=== PATIENT | male | born 1930 | race Caucasian/White ===

== ENCOUNTER 2019-02-08 06:43 | Inpatient (IN) | payer MEDICARE ==
[~2019-02-08] VITALS: Ht 172.7 cm; Wt 83.9 kg
[~2019-02-08 06:43] MED LIST: ALBU2.5V8 INH; ASPI325T8 PO; CARV3.1210 PO; FURO-69 PO; IPRA3AMP29 NEB; MULT1TAB52 PO; POTA20TA82 PO; SIMV20TA3 PO; TAMS0.4C2 PO
[2019-02-08 07:30] LABS: BASE EXCESS ABG -2 mmol/L (-3-3); HCO3 ABG 23 mmol/L (21-28); PCO2 ABG 39 mmHg (35-46); PO2 ABG 80 mmHg (65-108); SAT O2 ABG 94 % (92-99)
[2019-02-08] MEDS ORDERED: IPRATRPIUM/ALBUTEROL 0.5/2.5MG 3 ML NEBU. NEB ONE (07:30)
[2019-02-08] MEDS ORDERED: methylPREDNISolone SOD SUCC PF 125 MG/2 ML VIAL. IV ONE (07:30)
[2019-02-08 07:33] LABS: FIO2 ABG 28
[2019-02-08 07:35] LABS: BASO % 1 % (0-3); EOS # 0.1 x10^3/uL (0.0-0.7); EOS % 2 % (0-3); HEMATOCRIT 39.1 % (39.0-53.0); HEMOGLOBIN 12.9 g/dL (13.0-17.5); LYMPH # 0.8 x10^3/uL (1.0-4.8); LYMPH % 10 % (24-48); MEAN CORPUSCULAR HEMOGLOBIN 29 pg (25-35); MEAN CORPUSCULAR HGB CONC 33 g/dL (31-37); MEAN CORPUSCULAR VOLUME 88 fL (79-100); MONO # 0.9 x10^3/uL (0.0-1.1); MONO % 12 % (0-9); NEUT % 76 % (31-73); PLATELET COUNT 98 x10^3/uL (140-400); RED BLOOD COUNT 4.46 x10^6/uL (4.30-5.70); RED CELL DISTRIBUTION WIDTH 15.4 % (11.5-14.5); WHITE BLOOD COUNT 7.9 x10^3/uL (4.0-11.0)
--- NOTE | 2019-02-08 07:39 | RAD ---
PORTABLE CHEST 1V INDICATION: Dyspnea. COMPARISON STUDY: None. FINDINGS: Lungs: Normal lung volume. Bilateral perihilar and basilar regions opacities. Indistinct pulmonary vasculature. Pleura: Small to moderate right and trace left effusions. Heart and Mediastinum: Cardiomegaly. Atherosclerotic thoracic aorta. Cardiac valve prosthesis. IMPRESSION: Bilateral perihilar and basilar heterogeneous opacities, likely pulmonary edema. Small to moderate right and trace left pleural effusions. Electronically signed by: Nasir Driscoll MD (02/08/2019 7:36 AM) [facility]
[2019-02-08 07:47] LABS: CALCIUM 9.6 mg/dL (8.5-10.1); CREATININE 1.9 mg/dL (0.7-1.3); GFR 33.8; POTASSIUM 4.2 mmol/L (3.5-5.1)
[2019-02-08 07:54] LABS: ALBUMIN 3.6 g/dL (3.4-5.0); ALBUMIN/GLOBULIN RATIO 1.1 (1.0-1.7); TOTAL PROTEIN 6.8 g/dL (6.4-8.2)
--- NOTE | 2019-02-08 09:40 | PHYS DOC ---
Past Medical History Past Medical History: COPD Additional Past Medical Histor: SKIN CA, POOR HISTORIAN Past Surgical History: No Surgical History Additional Past Surgical Histo: POOR HISTORIAN Additional Information: QUIT 2002 Alcohol Use: None Drug Use: None Adult General Chief Complaint Chief Complaint: RIB PAIN [facility] HPI Patient is a 88 year old male who presents via EMS with complaining shortness of breath. Patient had a fall with left-sided chest wall injury about 10 days ago and complaining of increasing chest wall pain and shortness of breath because of the pain. Patient has history of COPD without having oxygen and also has history of CHF and currently taking Lasix. Patient denies chest pain, fever and chills, nausea and vomiting, focal neuro deficit. Review of Systems Review of Systems Constitutional: Denies fever or chills [] Eyes: Denies change in visual acuity, redness, or eye pain [] HENT: Denies nasal congestion or sore throat [] Respiratory: Reports dry cough and shortness of breath Cardiovascular: No additional information not addressed in HPI [] GI: Denies abdominal pain, nausea, vomiting, bloody stools or diarrhea [] : Denies dysuria or hematuria [] Musculoskeletal: Denies back pain or joint pain [] Integument: Denies rash or skin lesions [] Neurologic: Denies headache, focal weakness or sensory changes [] Endocrine: Denies polyuria or polydipsia [] All other systems were reviewed and found to be within normal limits, except as documented in this note. Current Medications Current Medications Current Medications Medications (Trade) Dose Ordered Sig/Ajx Start Time Stop Time Status Last Admin Dose Admin Albuterol/ Ipratropium (Duoneb) 3 ml 1X ONCE 02/08/19 07:30 02/08/19 07:31 DC 02/08/19 07:08 3 ML Methylprednisolone Sodium Succinate (SOLU-Medrol 125MG VIAL) 125 mg 1X ONCE 02/08/19 07:30 02/08/19 07:31 DC 02/08/19 07:37 125 MG Allergies Allergies Allergies Coded Allergies Type Severity Reaction Last Updated Verified No Known Drug Allergies 02/17/17 No Physical Exam Physical Exam Constitutional: Well developed, mild distress, non-toxic appearance. [] HENT: Normocephalic, atraumatic. Eyes: PERRLA, EOMI, conjunctiva normal, no discharge. [] Neck: Normal range of motion, no tenderness, supple, no stridor. [] Cardiovascular:Heart rate regular rhythm, no murmur [] Lungs & Thorax: Mild respiratory distress with bilateral rales Abdomen: Bowel sounds normal, soft, no tenderness, no masses, no pulsatile masses. [] Skin: Warm, dry, no erythema, no rash. [] Back: No tenderness, no CVA tenderness. [] Extremities: No tenderness, no cyanosis, no clubbing, ROM intact. Neurologic: Alert and oriented X 3, no focal deficits noted. [] Psychologic: Affect normal, judgement normal, mood normal. [] Current Patient Data Vital Signs Vital Signs Date Time Temp Pulse Resp B/P (MAP) Pulse Ox O2 Delivery O2 Flow Rate FiO2 02/08/19 08:48 72 18 97/50 (66) 98 Nasal Cannula 2.0 02/08/19 06:43 97.7 97.7 Lab Values Laboratory Tests Test 02/08/19 07:15 02/08/19 07:28 White Blood Count 7.9 x10^3/uL (4.0-11.0) Red Blood Count 4.46 x10^6/uL (4.30-5.70) Hemoglobin 12.9 g/dL (13.0-17.5) L Hematocrit 39.1 % (39.0-53.0) Mean Corpuscular Volume 88 fL (79-100) Mean Corpuscular Hemoglobin 29 pg (25-35) Mean Corpuscular Hemoglobin Concent 33 g/dL (31-37) Red Cell Distribution Width 15.4 % (11.5-14.5) H Platelet Count 98 x10^3/uL (140-400) L Neutrophils (%) (Auto) 76 % (31-73) H Lymphocytes (%) (Auto) 10 % (24-48) L Monocytes (%) (Auto) 12 % (0-9) H Eosinophils (%) (Auto) 2 % (0-3) Basophils (%) (Auto) 1 % (0-3) Neutrophils # (Auto) 6.0 x10^3/uL (1.8-7.7) Lymphocytes # (Auto) 0.8 x10^3/uL (1.0-4.8) L Monocytes # (Auto) 0.9 x10^3/uL (0.0-1.1) Eosinophils # (Auto) 0.1 x10^3/uL (0.0-0.7) Basophils # (Auto) 0.0 x10^3/uL (0.0-0.2) O2 Saturation 94 % (92-99) Arterial Blood pH 7.39 (7.35-7.45) Arterial Blood pCO2 at Patient Temp 39 mmHg (35-46) Arterial Blood pO2 at Patient Temp 80 mmHg (65-108) Arterial Blood HCO3 23 mmol/L (21-28) Arterial Blood Base Excess -2 mmol/L (-3-3) FiO2 28 Sodium Level 142 mmol/L (136-145) Potassium Level 4.2 mmol/L (3.5-5.1) Chloride Level 101 mmol/L (98-107) Carbon Dioxide Level 30 mmol/L (21-32) Anion Gap 11 (6-14) Blood Urea Nitrogen 66 mg/dL (8-26) H Creatinine 1.9 mg/dL (0.7-1.3) H Estimated GFR (Cockcroft-Gault) 33.8 BUN/Creatinine Ratio 35 (6-20) H Glucose Level 96 mg/dL (70-99) Calcium Level 9.6 mg/dL (8.5-10.1) Total Bilirubin 2.0 mg/dL (0.2-1.0) H Aspartate Amino Transferase (AST) 25 U/L (15-37) Alanine Aminotransferase (ALT) 25 U/L (16-63) Alkaline Phosphatase 76 U/L (46-116) Creatine Kinase 154 U/L (39-308) Troponin I Quantitative < 0.017 ng/mL (0.000-0.055) XU-Wjw-T-Type Natriuretic Peptide 3455 pg/mL (0-449) H Total Protein 6.8 g/dL (6.4-8.2) Albumin 3.6 g/dL (3.4-5.0) Albumin/Globulin Ratio 1.1 (1.0-1.7) Lactic Acid Level 1.7 mmol/L (0.4-2.0) Laboratory Tests 02/08/19 07:15 Laboratory Tests 02/08/19 07:15 EKG EKG EKG interpreted by me. EKG at 0651 showed sinus rhythm with PACs, leftward axis, poor R-wave progress in anteroseptal leads, no acute ST and T-wave elevation. Radiology/Procedures Radiology/Procedures [][facility] [address] [place] [address] IMAGING REPORT Signed PATIENT: AMARIS PRATT ACCOUNT: [id number] : 1930 LOCATION: ER AGE: 88 SEX: M EXAM STATUS: REG ER ORD. PHYSICIAN: RICHARD LEI MD REASON: shortness of breath PROCEDURE: PORTABLE CHEST 1V PORTABLE CHEST 1V INDICATION: Dyspnea. COMPARISON STUDY: None. FINDINGS: Lungs: Normal lung volume. Bilateral perihilar and basilar regions opacities. Indistinct pulmonary vasculature. Pleura: Small to moderate right and trace left effusions. Heart and Mediastinum: Cardiomegaly. Atherosclerotic thoracic aorta. Cardiac valve prosthesis. IMPRESSION: Bilateral perihilar and basilar heterogeneous opacities, likely pulmonary edema. Small to moderate right and trace left pleural effusions. Electronically signed by: Abad Driscoll MD (02/08/2019 7:36 AM) [facility] DICTATED and SIGNED BY: ABDA DRISCOLL MD DATE: 02/08/19735 Course & Med Decision Making Course & Med Decision Making Pertinent Labs and Imaging studies reviewed. (See chart for details) Evaluation of patient in ER showed 88-year-old male patient brought in by EMS because of shortness of breath and history of chest wall injury. Patient had elevation of BNP and hypoxia and treated with and Solu-Medrol. Patient did not have Lasix in ER because of elevation of renal function test and also blood pressure of 97 over 60 at time of admission.Patient requiring admission for further evaluation and treatment. Discussed with Dr. Issac Tolentino who is in agreement with admission. Discussed findings and plan with patient and family, who acknowledge understanding and agreement. Dragon Disclaimer Dragon Disclaimer This electronic medical record was generated, in whole or in part, using a voice recognition dictation system. Departure Departure Impression: Primary Impression: CHF exacerbation Additional Impressions: Dyspnea Hypoxia Renal insufficiency Elevated bilirubin Disposition: ADMITTED INPATIENT (at 0908) Admitting Physician: Issac Tolentino (accepted admission at 09) Condition: IMPROVED Referrals: ABAD DIA MD (PCP) Problem Qualifiers Primary Impression: CHF exacerbation Heart failure type: unspecified Qualified Codes: I50.9 - Heart failure, unspecified Additional Impressions: Dyspnea Dyspnea type: unspecified Qualified Codes: R06.00 - Dyspnea, unspecified RICHARD LEI MD Feb 08, 2019 09:40
--- NOTE | 2019-02-08 10:12 | EKG ---
[facility] [address] [place] [address] Test Date: 2019-02-08 Test Time: 06:51:25 Pat Name: AMARIS PRATT Department: Room: 2 1 Gender: M [employer] Fe[employer]: : 1930 Requested By: RICHARD LEI Order Number: [id number] Reading MD: Varinder Oliva MD Measurements Intervals [place] Rate: 90 P: OK: QRS: -15 QRSD: 98 T: 49 QT: 374 QTc: 462 Interpretive Statements Ectopic atrial rhythm PAC's PVC"s Electronically Signed On 02-12-2019 14:18:15 CDT by Varinder Oliva MD
[2019-02-08 10:31] VITALS: BP 151/55
[2019-02-08 15:00] VITALS: BP 121/56
[2019-02-08] MEDS: CARVEDILOL 3.125 MG TABLET. PO SCH (17:44)
[2019-02-08] MEDS ORDERED: NAPROXEN 250 MG TABLET PO PRN (18:00)
[2019-02-08 19:37] VITALS: BP 114/57
[2019-02-08] MEDS: SIMVASTATIN 20 MG TABLET PO SCH (21:00)
[2019-02-08] MEDS: IPRATRPIUM/ALBUTEROL 0.5/2.5MG 3 ML NEBU. NEB SCH (21:26)
[2019-02-08 23:30] VITALS: BP 105/53
[2019-02-08 23:58] LABS: BILIRUBIN,URINE NEGATIVE (NEG); CLARITY,URINE CLEAR; COLOR,URINE YELLOW; PROTEIN,URINE NEGATIVE (NEG-TRACE); UROBILINOGEN,URINE 0.2 mg/dL (0.2 mg/dL)
[2019-02-08 23:59] LABS: BACTERIA,URINE 0 /HPF (0-FEW); HYALINE CASTS, URINE OCCASIONAL /HPF; NITRITE,URINE NEGATIVE (NEG); RBC,URINE 0 /HPF (0-2); SQUAMOUS EPITHELIAL CELL,UR OCC /LPF; WBC,URINE OCC /HPF (0-4)
--- NOTE | 2019-02-09 02:36 | NUR ---
Pt given shower this am due to very dry skin and pt states he had something in his pocket that could not get wet. CLINICAL LIAISON noted money and cards in his pocket. Called security since pt had more than 400$ in his pocket. Pt verbalized understanding.
[2019-02-09 03:00] VITALS: BP 109/58
[2019-02-09] MEDS: IPRATRPIUM/ALBUTEROL 0.5/2.5MG 3 ML NEBU. NEB SCH ×4 (07:13→21:13)
[2019-02-09 07:34] VITALS: BP 116/61
[2019-02-09] MEDS: TAMSULOSIN 0.4 MG CAP.ER.24H. PO SCH (08:12)
[2019-02-09] MEDS: ASPIRIN 325 MG TABLET PO SCH (08:12)
[2019-02-09] MEDS: POTASSIUM CHLORIDE 20 MEQ TABLET.ER. PO SCH (08:13)
[2019-02-09] MEDS: CARVEDILOL 3.125 MG TABLET. PO SCH ×2 (08:13→17:07)
[2019-02-09] MEDS: MULTIVITAMIN with MINERAL TABLET. PO SCH (08:13)
[2019-02-09] MEDS ORDERED: FUROSEMIDE 20 MG TABLET PO SCH (09:00)
[2019-02-09 10:48] VITALS: BP 133/63
[2019-02-09] MEDS ORDERED: FLU VAX QS 2019-20 (36MOS+)/PF 0.5 ML SYRINGE. VAX IM ONE (11:00)
--- NOTE | 2019-02-09 11:45 | NUR ---
wound care patient seen per wound care consult. see wound assessment. patient has a lesion on the left forehead the area was cleaned and redressed with recommendations of Xeroform gauze with a Telfa dressing change every other day, patient also has a wound on the scalp the area was cleaned and redressed with recommendations of Xeroform gauze with a Telfa, change every other day. patient has a stage 2 pressure ulcer on the buttock/ coccyx area, the area was cleaned and redressed with recommendations of Calazime cream, prn. patient currently has a P500 bed. wound care will continue to f/u for changes.
[2019-02-09 14:54] VITALS: BP 113/38
[2019-02-09 19:18] VITALS: BP 97/43
--- NOTE | 2019-02-09 20:25 | HP ---
ADMIT DATE: 02/08/2019 CHIEF COMPLAINT AND HISTORY OF PRESENT ILLNESS: This 88-year-old white male is well known to me from followup in the office. The patient presented by ambulance to the ER on the day of admission complaining of shortness of breath. He has been having increasing shortness of breath, which he relates back to a fall 10 days ago, getting progressively worse. He has a history of COPD and also a history of heart failure and is on Lasix. He was felt to have an exacerbation of CHF in the ER and admitted for the same. PAST MEDICAL HISTORY: Remarkable for COPD and congestive heart failure. He has some mild memory loss. He has a prior history of CVA, hypertension, arthritis, skin cancers. MEDICATIONS: Brought with the patient, listed on the computer and have been addressed. ALLERGIES: He has no known drug allergies. SOCIAL HISTORY: He is a , nonsmoker, nondrinker, does not abuse drugs. Lives at home alone. FAMILY HISTORY: Noncontributory. REVIEW OF SYSTEMS: Remarkable for the shortness of breath. He does have some left-sided chest pain with a deeper breath. PHYSICAL EXAMINATION: GENERAL: He is a well-developed, well-nourished white male in no acute distress at the time of my examination, feels like he may be a little bit better since admission the day prior. Output has been greater than intake since admission. HEAD, EYES, EARS, NOSE AND THROAT: Unremarkable. NECK: Supple, without adenopathy or thyromegaly. CHEST: Reveals soft bibasilar rales. HEART: Regular rate and rhythm without S3, S4 or murmur heard. ABDOMEN: Soft, nontender, without hepatosplenomegaly or masses. EXTREMITIES: Without cyanosis, clubbing. He does have 1+ edema. NEUROLOGIC: He is intact. LABORATORY DATA: Initial lab work shows CBC was remarkable for a platelet count 98,000. Blood gas is unremarkable. Chemistry panel shows a BUN of 66, creatinine 1.9, total bilirubin of 2. BNP elevated at 3455 and a troponin that was normal. Urinalysis is unremarkable. Lactic acid was unremarkable. Chest x-ray on admission showed a small to moderate right and trace left pleural effusion and is consistent with pulmonary edema. IMPRESSION: 1. Exacerbation of congestive heart failure. 2. Shortness of breath. 3. Renal insufficiency. 4. History of chronic obstructive pulmonary disease. PLAN: The patient has been admitted. Diuresis will be ongoing. Echocardiogram will be checked and the patient will be monitored, managed and treated appropriately. ABAD DIA MD DR: MARK/vee JOB#: [id number] / [id number]
[2019-02-09] MEDS: SIMVASTATIN 20 MG TABLET PO SCH (22:27)
[2019-02-09 23:05] VITALS: BP 94/46
[2019-02-10 03:13] VITALS: BP 95/54
[2019-02-10 07:00] VITALS: BP 101/41
[2019-02-10] MEDS: IPRATRPIUM/ALBUTEROL 0.5/2.5MG 3 ML NEBU. NEB SCH ×4 (07:05→20:39)
[2019-02-10 07:41] LABS: CALCIUM 9.4 mg/dL (8.5-10.1); CREATININE 1.7 mg/dL (0.7-1.3); GFR 38.4
[2019-02-10] MEDS: CARVEDILOL 3.125 MG TABLET. PO SCH ×2 (08:00→17:00)
--- NOTE | 2019-02-10 08:28 | PDOC ---
GENERAL General: vss and afebrile. awake and alert and thinks breathing little better but still not at baseline. chest with soft bibasilar crackles, heart regular, abdomen benign. will increased diuresis and follow lytes echo today. VITAL SIGNS/I&O Vital Signs/I&O: Vital Signs Date Time Temp Pulse Resp B/P (MAP) Pulse Ox O2 Delivery O2 Flow Rate FiO2 02/10/19 07:05 95 Nasal Cannula 2.0 02/10/19 07:00 96.4 73 18 101/41 (61) 96.4 I & O 02/09/19 02/09/19 02/10/19 14:59 22:59 06:59 Intake Total 480 ml 100 ml 300 ml Balance 480 ml 100 ml 300 ml ALLERGIES Allergies: Allergies Coded Allergies Type Severity Reaction Last Updated Verified No Known Drug Allergies 02/17/17 No MEDS Medications: Current Medications Medications (Trade) Dose Ordered Sig/Jax Route PRN Reason Start Time Stop Time Status Last Admin Dose Admin Aspirin (Lyssa Aspirin) 325 mg DAILY PO 02/09/19 09:00 02/09/19 08:12 Furosemide (Lasix) 20 mg DAILY PO 02/09/19 09:00 02/09/19 20:09 DC 02/09/19 08:12 Tamsulosin HCl (Flomax) 0.4 mg DAILY PO 02/09/19 09:00 02/09/19 08:12 Multivitamins (Thera M Plus) 1 tab DAILY PO 02/09/19 09:00 02/09/19 08:13 Influenza Virus Vaccine Quadrival (Afluria Quad 2019-20 (3yr Up) Syringe) 0.5 ml ONCE ONCE VAX IM 02/09/19 11:00 02/09/19 11:01 DC 02/09/19 17:10 LAB Lab: Laboratory Tests Test 02/10/19 05:04 Sodium Level 140 mmol/L (136-145) Potassium Level 4.0 mmol/L (3.5-5.1) Chloride Level 101 mmol/L (98-107) Carbon Dioxide Level 33 mmol/L (21-32) H Anion Gap 6 (6-14) Blood Urea Nitrogen 69 mg/dL (8-26) H Creatinine 1.7 mg/dL (0.7-1.3) H Estimated GFR (Cockcroft-Gault) 38.4 Glucose Level 93 mg/dL (70-99) Calcium Level 9.4 mg/dL (8.5-10.1) Laboratory Tests 02/10/19 05:04 ABAD DIA MD Feb 10, 2019 08:28
[2019-02-10] MEDS: MULTIVITAMIN with MINERAL TABLET. PO SCH (08:31)
[2019-02-10] MEDS: TAMSULOSIN 0.4 MG CAP.ER.24H. PO SCH (08:31)
[2019-02-10] MEDS: POTASSIUM CHLORIDE 20 MEQ TABLET.ER. PO SCH (08:31)
[2019-02-10] MEDS: ASPIRIN 325 MG TABLET PO SCH (08:32)
[2019-02-10] MEDS: FUROSEMIDE 40 MG/4 ML VIAL. IVP SCH (08:33)
[2019-02-10 11:04] VITALS: BP 94/54
--- NOTE | 2019-02-10 13:19 | CARD ---
MR#: [id number] Date of Study: 02/10/2019 Ordering Physician: ABAD DIA, Referring Physician: ABAD DIA, Tech: Micheline Mcfadden APPROVED REPORT EXAM: Two-dimensional and M-mode echocardiogram with Doppler and color Doppler. Other Information Quality : FairHR: 87bpm INDICATION valvular disease 2D DIMENSIONS RVDd3.2 (2.9-3.5cm)Left Atrium(2D)3.7 (1.6-4.0cm) IVSd1.2 (0.7-1.1cm)Aortic Root(2D)2.1 (2.0-3.7cm) LVDd5.1 (3.9-5.9cm)LVOT Diameter1.9 (1.8-2.4cm) PWd1.0 (0.7-1.1cm)LVDs2.7 (2.5-4.0cm) FS (%) 48.3 %SV100.5 ml LVEF(%)79.3 (>50%) Aortic Valve AoV Peak Pernell.326.7cm/sAoV VTI79.3cm AO Peak GR.42.7mmHgLVOT Peak Pernell.102.1cm/s AO Mean GR.24mmHgAVA (VMAX)0.85cm2 Mitral Valve MV E Euqiytsz134.7cm/sMV DECEL [id number] MV A Buiagnsn689.5cm/sE/A Ratio1.7 Pulmonary Valve PV Peak Ttogehfu99.1cm/s Tricuspid Valve TR P. Itwcaeaq808wn/sTR Peak Gr.73mmHg LEFT VENTRICLE The left ventricle is normal size. There is mild to moderate concentric left ventricular hypertrophy. The Ejection Fraction is 60-65%. The left ventricular systolic function is normal and the ejection f raction is within normal range. There is normal LV segmental wall motion. Transmitral Doppler flow pa ttern is Grade III-reversible restrictive diastolic dysfunction. RIGHT VENTRICLE The right ventricle is borderline dilated. There is normal right ventricular wall thickness. The righ t ventricular systolic function is normal. ATRIA The left atrium is borderline dilated. The right atrium is mildly dilated. The interatrial septum is intact with no evidence for an atrial septal defect or patent foramen ovale as noted on 2-D or Dopple r imaging. AORTIC VALVE Transcatheter aortic valve replacement noted - maximum gradient of 43 mmHg and a mean gradient of 24 mmHg. Poor image quality precludes accurate gradient evaluation. MITRAL VALVE The mitral valve is thickened but opens well. There is no evidence of mitral valve prolapse. There is no mitral valve stenosis. Doppler and Color-flow revealed moderate mitral regurgitation. TRICUSPID VALVE The tricuspid valve is normal in structure and function. Doppler and Color Flow revealed moderate tri cuspid regurgitation with an estimated PAP of 59 mmHg. There is moderate to severe pulmonary hyperten joseph. There is no tricuspid valve prolapse or vegetation. There is no tricuspid valve stenosis. PULMONIC VALVE The pulmonic valve is not well visualized. Doppler and Color Flow revealed trace to mild pulmonic soledad vular regurgitation. There is no pulmonic valvular stenosis. GREAT VESSELS The aortic root is normal in size. The IVC was not visualized. PERICARDIAL EFFUSION There is no evidence of significant pericardial effusion. Critical Notification Critical Value: No <Conclusion> The Ejection Fraction is 60-65%. The left ventricular systolic function is normal and the ejection fr action is within normal range. There is normal LV segmental wall motion. Transmitral Doppler flow pattern is Grade III-reversible restrictive diastolic dysfunction. Transcatheter aortic valve replacement noted - maximum gradient of 43 mmHg and a mean gradient of 24 mmHg. Poor image quality precludes accurate gradient evaluation. Doppler and Color-flow revealed moderate mitral regurgitation. Doppler and Color Flow revealed moderate tricuspid regurgitation with an estimated PAP of 59 mmHg. Th ere is moderate to severe pulmonary hypertension. Signed by : Varinder Oliva, Electronically Approved : 02/10/2019 13:19:14
[2019-02-10 15:00] VITALS: BP 101/41
[2019-02-10 19:21] VITALS: BP 121/55
[2019-02-10] MEDS: SIMVASTATIN 20 MG TABLET PO SCH (21:00)
[2019-02-10 23:48] VITALS: BP 131/62
[2019-02-11 03:13] VITALS: BP 111/59
[2019-02-11 07:07] VITALS: BP 105/49
[2019-02-11] MEDS: IPRATRPIUM/ALBUTEROL 0.5/2.5MG 3 ML NEBU. NEB SCH ×4 (07:49→20:07)
--- NOTE | 2019-02-11 07:53 | PDOC ---
GENERAL General: vss and afebrile. awake and alert and breathing better. I&O not recorded. chest better breath sounds, heart regular, abdomen benign. will continue diuresis and follow labs. VITAL SIGNS/I&O Vital Signs/I&O: Vital Signs Date Time Temp Pulse Resp B/P (MAP) Pulse Ox O2 Delivery O2 Flow Rate FiO2 02/11/19 03:13 98.2 77 18 111/59 (76) 93 Nasal Cannula 2.0 98.2 I & O 02/10/19 02/10/19 02/11/19 14:59 22:59 06:59 Intake Total 850 ml 640 ml 240 ml Balance 850 ml 640 ml 240 ml ALLERGIES Allergies: Allergies Coded Allergies Type Severity Reaction Last Updated Verified No Known Drug Allergies 02/17/17 ABAD Mayorga MD Feb 11, 2019 07:53
[2019-02-11] MEDS: CARVEDILOL 3.125 MG TABLET. PO SCH ×2 (08:00→16:23)
[2019-02-11] MEDS: MULTIVITAMIN with MINERAL TABLET. PO SCH (08:59)
[2019-02-11] MEDS: TAMSULOSIN 0.4 MG CAP.ER.24H. PO SCH (08:59)
[2019-02-11] MEDS: ASCORBIC ACID 500 MG TABLET PO SCH (08:59)
[2019-02-11] MEDS: POTASSIUM CHLORIDE 20 MEQ TABLET.ER. PO SCH (08:59)
[2019-02-11] MEDS: ASPIRIN 325 MG TABLET PO SCH (08:59)
[2019-02-11] MEDS: FUROSEMIDE 40 MG/4 ML VIAL. IVP SCH (09:00)
--- NOTE | 2019-02-11 10:33 | NUR ---
SW following pt. Pt agreeable with a screen at [facility]. KALEB phoned and faxed referral. Pt is accepted but no beds right now. A bed might open possible later today or tomorrow. Will continue to follow.
[2019-02-11 11:20] VITALS: BP 107/56
--- NOTE | 2019-02-11 13:20 | NUR ---
SW following pt. Spoke with Physician and pt is not ready to dc today as pt is coughing up blood. Discussed with RN. Updated Shantal at PP.
--- NOTE | 2019-02-11 16:02 | RAD ---
CHEST PA LATERAL Clinical indications: Cough to blood clot COMPARISON: February 08, 2019. Findings: Prominent calcified granuloma is seen anteriorly in the lateral view within the retrosternal space. This appears be located within the right upper lobe. Bilateral lung infiltrates or pulmonary edema are again evident. This has become more consolidative on the left side. There has been improvement of the infiltrate on the right side especially within right upper lobe. Moderate size right-sided pleural effusion is unchanged. Small posterior left-sided pleural effusion is evident. No pneumothorax is seen. Heart size is prominent but unchanged. Mediastinum is unchanged. Impression: Radiographic findings may represent CHF. There has been increase in consolidative alveolar pulmonary edema of the left lung field but improvement of pulmonary edema of the right lung field. Stable moderate size right-sided pleural effusion. Small stable left-sided pleural effusion. Electronically signed by: Michel Shaffer MD (02/11/2019 3:59 PM) [facility]
[2019-02-11 19:57] VITALS: BP 113/33
[2019-02-11] MEDS: SIMVASTATIN 20 MG TABLET PO SCH (20:13)
[2019-02-11 23:19] VITALS: BP 106/43
[2019-02-12] VITALS (7 sets, daily range): BP systolic 103–119; BP diastolic 35–69
[2019-02-12 05:20] LABS: CALCIUM 9.4 mg/dL (8.5-10.1); CREATININE 1.6 mg/dL (0.7-1.3); GFR 41.2
[2019-02-12 05:28] LABS: POTASSIUM 5.1 mmol/L (3.5-5.1)
[2019-02-12] MEDS: IPRATRPIUM/ALBUTEROL 0.5/2.5MG 3 ML NEBU. NEB SCH ×4 (09:00→20:53)
[2019-02-12] MEDS: ASPIRIN 325 MG TABLET PO SCH (09:05)
[2019-02-12] MEDS: MULTIVITAMIN with MINERAL TABLET. PO SCH (09:06)
[2019-02-12] MEDS: ASCORBIC ACID 500 MG TABLET PO SCH (09:06)
[2019-02-12] MEDS: TAMSULOSIN 0.4 MG CAP.ER.24H. PO SCH (09:06)
[2019-02-12] MEDS: CARVEDILOL 3.125 MG TABLET. PO SCH ×2 (09:06→17:00)
[2019-02-12] MEDS: POTASSIUM CHLORIDE 20 MEQ TABLET.ER. PO SCH (09:06)
[2019-02-12] MEDS: FUROSEMIDE 40 MG/4 ML VIAL. IVP SCH (09:08)
--- NOTE | 2019-02-12 10:08 | PDOC ---
Provider Note Provider Note [id number] acute resp fail acute diastolic chf acute bronchitis ae of copd see orders POORNIMA CROCKETT MD Feb 12, 2019 10:08
--- NOTE | 2019-02-12 11:24 | PN ---
DATE: 02/12/2019 LOCATION: Room 652. SUBJECTIVE: The patient is awake, alert, sitting in chair, getting ready to walk with physical therapy. States he feels overall the shortness of breath may be slightly improved. During the day yesterday on at least a couple of occasions, he coughed up some blood. OBJECTIVE: VITAL SIGNS: Stable. He is afebrile. GENERAL: Again, he is awake and alert. CHEST: Reveals better breath sounds with less rales. HEART: Regular. ABDOMEN: Benign. EXTREMITIES: Trace edema. NEUROLOGIC: He is intact. LABORATORY DATA: Chest x-ray yesterday shows increasing consolidative alveolar pulmonary edema on the left lung field with improvement on the right. IMPRESSION: Congestive heart failure, hypoxia, hemoptysis. PLAN: We will continue diuresis at this point in time and I am going to ask Cardiology and Pulmonary for opinion that he does not seem to be improving as I would have expected with just a ____ variety of pulmonary edema. ABAD DIA MD DR: MARK/vee JOB#: [id number] / [id number]
--- NOTE | 2019-02-12 11:40 | CONS ---
DATE OF CONSULTATION: 02/12/2019 I was asked to see this 88-year-old gentleman for hemoptysis. HISTORY OF PRESENT ILLNESS: The patient is very hard of hearing and poor historian. Most of the information was obtained from nursing staff and patient's chart. The patient was brought to the Emergency Room for increased shortness of breath. He had a fall with right-sided chest wall injury about 10 days ago. He does have cough. Yesterday, he coughed up small amount of blood clot. He has not had any since yesterday. He has had one episode of epistaxis today. PAST MEDICAL HISTORY: COPD, CHF, history of CVA, skin cancer, and arthritis. MEDICATIONS: Currently, he is on Lasix 40 mg IV daily, vitamin C, multivitamin, Flomax, aspirin, KCl, Zocor, Naprosyn, DuoNeb, and Coreg. SOCIAL HISTORY: Positive for smoking, details are not known. FAMILY HISTORY: Unable to obtain. The patient is a very poor historian. REVIEW OF SYSTEMS: As mentioned as above. I have discussed the patient with RN, other systems otherwise negative. PHYSICAL EXAMINATION: GENERAL: He is an elderly gentleman. VITAL SIGNS: His O2 saturation on 2 liters of oxygen is 93%, respiratory rate 18, heart rate 63, blood pressure 102/41, temperature 97.7. HEENT: Normocephalic, atraumatic. Pupils equal, round, and reactive to light. Throat is clear. Nose is clear. NECK: There is no JVD, lymphadenopathy or thyromegaly. CARDIOVASCULAR: Regular rate and rhythm. PMI is nondisplaced. Chest expansion is normal. LUNGS: There is an end-expiratory wheezing, bibasilar crackles, dullness at the bases. ABDOMEN: Soft. Bowel sounds are good. There is no mass. EXTREMITIES: There is edema with chronic skin changes. NEUROLOGIC: He is alert. SKIN: Chronic changes. LYMPHATICS: There is no lymphadenopathy. LABORATORY DATA: I reviewed the following lab data: Chest x-ray shows bilateral small effusion, right more than the left, with bilateral infiltrate and increased vascular marking. ABG on 02/08/2019, pH 7.39, pCO2 of 39, pO2 of 80 on 28% FiO2. Sodium 141, potassium 5.1, chloride 104, CO2 of 33, glucose 113, BUN 45, and creatinine 1.6. Creatinine on 02/08/2019 was 1.9. Echocardiogram did show ejection fraction 60-65%, diastolic dysfunction, and estimated pulmonary artery pressure of 59. Moderate mitral regurgitation. IMPRESSION: 1. Acute respiratory failure secondary to acute diastolic congestive heart failure and acute exacerbation of chronic obstructive pulmonary disease and acute bronchitis versus others. 2. Abnormal chest x-ray. 3. Acute diastolic congestive heart failure. 4. Acute exacerbation of chronic obstructive pulmonary disease. 5. Acute bronchitis. 6. Acute kidney injury. 7. Hyperkalemia. 8. Pulmonary hypertension, secondary, due to chronic obstructive pulmonary disease, congestive heart failure, moderate mitral regurgitation. PLAN AND RECOMMENDATION: 1. Titrate FiO2 to keep O2 saturation 92%. 2. Continue bronchodilator. 3. Continue Lasix. Monitor potassium and KCl. We will discontinue potassium supplement since his potassium is 5.1 today. 4. Add Solu-Medrol 40 mg IV b.i.d. 5. Lower extremity venous Doppler. 6. Monitor respiratory status very closely. 7. Add Rocephin. 8. Code status needs to be addressed. Defer to primary doctor. 9. The patient had one episode of coughing up small amount of blood clot yesterday. It could be secondary to acute bronchitis. He has not had any more hemoptysis. He had epistaxis, which I suspect is secondary to dryness. I will add humidity to oxygen. Thank you very much for allowing me to participate in the care of this very nice gentleman. The findings and recommendations were discussed with RN. POORNIMA CROCKETT M.D. : DIPESH/vee JOB#: [id number] / [id number] PEGGY
[2019-02-12] MEDS: cefTRIAXone IV Push 1 GM VIAL. IVP SCH (12:01)
[2019-02-12] MEDS: methylPREDNISolone SOD SUCC PF 40 MG/ML VIAL. IV SCH ×2 (12:01→20:01)
[2019-02-12] MEDS: POLYETHYLENE GLYCOL 3350 17 GM PACKET. PO PRN (12:07)
--- NOTE | 2019-02-12 15:16 | CONS ---
DATE OF CONSULTATION: 02/12/2019 REASON FOR CONSULTATION: Heart failure and fall. HISTORY OF PRESENT ILLNESS: The patient is a pleasant 88-year-old man with past medical history as noted below, who was actually admitted on 02/09/2019 for worsening shortness of breath and he was treated with Lasix. Due to persistent dyspnea despite treatment with Lasix, the Cardiology and Pulmonology services were consulted. He was actually admitted to the hospital previously and at that time, the overall impression was for conservative management given his age and dementia. Currently, the patient is very hard of hearing and his history is quite limited. Most of the history is obtained from chart review. Currently being treated for bronchitis and diastolic heart failure exacerbation. PAST MEDICAL HISTORY: 1. Coronary artery disease with unknown anatomy and interventions. 2. Aortic valve stenosis, status post transcatheter aortic valve replacement in 2016. 3. Chronic kidney disease. 4. Prior history of posterior circulation stroke. 5. Thrombocytopenia. 6. Peripheral arterial disease 7. Abdominal aortic aneurysm, status post endovascular aortic repair. 8. Chronic obstructive pulmonary disease. 9. Hypertension. 10. Dyslipidemia. He was actually seen in the office at [facility] on 07/2018 and at that time was felt to be in stable condition and previous to that was also admitted for syncope without any clear cardiovascular reason identified. An echocardiogram done at that visit in July did not reveal any significant pathology with his transcatheter aortic valve replacement. At that time, he was also being treated with Lasix as needed at 20 mg dose. CURRENT CARDIOVASCULAR MEDICATIONS: As follows: 1. Lasix 40 mg IV push. 2. Aspirin 325 mg daily. 3. Simvastatin 20 mg daily. 4. Carvedilol 3.125 mg p.o. b.i.d. ALLERGIES: No known drug allergies. SOCIAL HISTORY: No alcohol, tobacco or illicit drug use. He is . REVIEW OF SYSTEMS: Unable to be obtained at this time. PHYSICAL EXAMINATION: VITAL SIGNS: Afebrile, 59, 18, 104/44, 94% on 2 liters. GENERAL: He is alert and oriented only to self. HEAD AND NECK: He has multiple abrasions covered in bandages. CARDIAC: Regular heart tones with a 3/6 systolic murmur, most consistent with aortic valve residual stenosis across the transcatheter valve. LUNGS: Notable for decreased breath sounds at the bases, but otherwise unremarkable. ABDOMEN: Soft. EXTREMITIES: Demonstrate bilateral lower extremity venous stasis changes with 1+ pitting edema. NEUROLOGIC: No focal deficits. DIAGNOSTIC STUDIES: EKG demonstrates ectopic atrial rhythm with PACs and PVCs. Echocardiogram performed on 02/10/2019 reveals a normal ejection fraction with avtc-in-bjqigjfn residual aortic stenosis with moderate mitral regurgitation and agrvwlmi-ct-cybnwr pulmonary hypertension, which are similar in finding compared to an echocardiogram at [facility] 6 months ago. Chest x-ray is suggestive of moderate fluid overload. IMPRESSION: 1. Acute on chronic diastolic heart failure. 2. Aortic valve stenosis, status post transcatheter aortic valve replacement, currently stable. 3. Coronary artery disease, currently without any angina. RECOMMENDATIONS: Agree with aggressive pulmonary toilet and continue diuresis with Lasix. Nothing further from a cardiovascular standpoint at this time. Supportive care. If for some reason there is concern regarding further diuresis we could always consider a right heart catheterization in the next 24-48 hours as needed. Thank you for this consultation. SARAH HUBBARD MD DR: KALEY/vee JOB#: [id number] / [id number]
[2019-02-12] MEDS: SIMVASTATIN 20 MG TABLET PO SCH (20:01)
--- NOTE | 2019-02-13 02:02 | RAD ---
Ultrasound venous Doppler INDICATION:Bilateral leg edema and redness. TECHNIQUE: Grayscale, color Doppler and spectral waveform ultrasound images of the bilateral lower extremities deep veins obtained. COMPARISON: None FINDINGS: Limited exam as patient refused to lay in the back. Patient was scanned in appropriate position. Within these limitations, the interrogated deep veins are compressible and demonstrate evidence of blood flow with normal respiratory variation and response to augmentation. Bilateral significant leg soft tissue edema causing limited visualization of posterior tibial vein and peroneal veins.. IMPRESSION: No sonographic evidence of acute DVT of the bilateral lower extremity deep veins. Electronically signed by: Wilfredo Gonzalez DO (02/13/2019 2:00 AM) [facility]
[2019-02-13 03:15] VITALS: BP 120/50
[2019-02-13 05:33] LABS: CALCIUM 9.1 mg/dL (8.5-10.1); CREATININE 1.4 mg/dL (0.7-1.3); GFR 48.1; POTASSIUM 5.2 mmol/L (3.5-5.1)
[2019-02-13 07:00] VITALS: BP 108/48
[2019-02-13] MEDS: IPRATRPIUM/ALBUTEROL 0.5/2.5MG 3 ML NEBU. NEB SCH ×4 (07:20→20:37)
--- NOTE | 2019-02-13 08:30 | PDOC ---
PULMONARY PROGRESS NOTES Subjective since added humidify to 02, no hemoptysis or epistaxis, has occ cough, no sob Vitals Vital Signs Date Time Temp Pulse Resp B/P (MAP) Pulse Ox O2 Delivery O2 Flow Rate FiO2 02/13/19 07:21 98 Nasal Cannula 2.0 02/13/19 07:00 97.8 77 16 108/48 (68) 97.8 ROS: No Nausea General: Alert HEENT: Other (nc at perrl) Lungs: Crackles Cardiovascular: S1, S2 Abdomen: Soft, Non-tender Neuro Exam: Alert Skin: Warm Labs Laboratory Tests Test 02/12/19 04:05 02/13/19 04:00 Sodium Level 141 mmol/L (136-145) 138 mmol/L (136-145) Potassium Level 5.1 mmol/L (3.5-5.1) 5.2 mmol/L (3.5-5.1) Chloride Level 104 mmol/L (98-107) 103 mmol/L (98-107) Carbon Dioxide Level 33 mmol/L (21-32) 30 mmol/L (21-32) Anion Gap 4 (6-14) 5 (6-14) Blood Urea Nitrogen 45 mg/dL (8-26) 36 mg/dL (8-26) Creatinine 1.6 mg/dL (0.7-1.3) 1.4 mg/dL (0.7-1.3) Estimated GFR (Cockcroft-Gault) 41.2 48.1 Glucose Level 113 mg/dL (70-99) 149 mg/dL (70-99) Calcium Level 9.4 mg/dL (8.5-10.1) 9.1 mg/dL (8.5-10.1) Laboratory Tests Test 02/13/19 04:00 Sodium Level 138 mmol/L (136-145) Potassium Level 5.2 mmol/L (3.5-5.1) Chloride Level 103 mmol/L (98-107) Carbon Dioxide Level 30 mmol/L (21-32) Anion Gap 5 (6-14) Blood Urea Nitrogen 36 mg/dL (8-26) Creatinine 1.4 mg/dL (0.7-1.3) Estimated GFR (Cockcroft-Gault) 48.1 Glucose Level 149 mg/dL (70-99) Calcium Level 9.1 mg/dL (8.5-10.1) Medications Active Scripts Medications Dose Route/Sig Max Daily Dose Days Date Category Multivitamins (Multivitamin) 1 Each Tablet 1 Tab PO DAILY 02/17/17 Reported Tamsulosin Hcl 0.4 Mg Cap.er.24h 0.4 Mg PO DAILY 02/17/17 Reported Simvastatin 20 Mg Tablet 1 Tab PO QHS 02/17/17 Reported Potassium Chloride 20 Meq Tablet.er 20 Meq PO DAILY 02/17/17 Reported Lasix (Furosemide) 20 Mg Tablet 1 Tab PO DAILY 02/17/17 Reported Carvedilol (Carvedilol) 3.125 Mg Tablet 1 Tab PO BID 02/17/17 Reported Aspirin 325 Mg Tablet 1 Tab PO DAILY 02/17/17 Reported Duoneb 0.5-3(2.5) Mg/3 Ml (Albuterol/Ipratropium) 3 Ml Ampul.neb 3 Ml NEB QID 02/17/17 Reported Proair Hfa Inhaler (Albuterol Sulfate) 8.5 Gm Hfa.aer.ad 2 Puff INH PRN Q6HRS PRN 02/17/17 Reported Impression . IMPRESSION: 1. Acute respiratory failure secondary to acute diastolic congestive heart failure and acute exacerbation of chronic obstructive pulmonary disease and acute bronchitis. 2. Abnormal chest x-ray. 3. Acute diastolic congestive heart failure. 4. Acute exacerbation of chronic obstructive pulmonary disease. 5. Acute bronchitis. 6. Acute kidney injury. 7. Hyperkalemia. 8. Pulmonary hypertension, secondary, due to chronic obstructive pulmonary disease, congestive heart failure, moderate mitral regurgitation. Plan . PLAN AND RECOMMENDATION: 1. Titrate FiO2 to keep O2 saturation 92%. 2. Continue bronchodilator. 3. Continue Lasix. Monitor potassium and K, Cl. 4. change Solu-Medrol to prednisone 40 mg daily 5. Lower extremity venous Doppler, neg. 6. ct of chest to eval abnl seen in cxr 7. cont Rocephin. 8. Code status needs to be addressed. Defer to primary doctor. 9. The patient had one episode of coughing up small amount of blood clot on 02/11. It could be secondary to acute bronchitis vs dryness. no hemoptysis or epistaxis since humidity added to oxygen. discuss w POORNIMA Chappell MD Feb 13, 2019 08:30
[2019-02-13] MEDS: MULTIVITAMIN with MINERAL TABLET. PO SCH (08:57)
[2019-02-13] MEDS: ASCORBIC ACID 500 MG TABLET PO SCH (08:57)
[2019-02-13] MEDS: CARVEDILOL 3.125 MG TABLET. PO SCH ×2 (08:57→17:00)
[2019-02-13] MEDS: ASPIRIN 325 MG TABLET PO SCH (08:57)
[2019-02-13] MEDS: TAMSULOSIN 0.4 MG CAP.ER.24H. PO SCH (08:57)
[2019-02-13] MEDS: FUROSEMIDE 40 MG/4 ML VIAL. IVP SCH (08:59)
[2019-02-13] MEDS: predniSONE 20 MG TABLET PO SCH (09:02)
--- NOTE | 2019-02-13 10:33 | PN ---
DATE: 02/13/2019 DAILY PROGRESS NOTE LOCATION: Room 652. SUBJECTIVE: The patient is awake, alert, feels like he is still a little short of breath, but overall improved. No further hemoptysis. OBJECTIVE: VITAL SIGNS: Stable. He is afebrile. CHEST: Reveals diminished breath sounds bilaterally, but no definite crackles. HEART: Regular. ABDOMEN: Benign. EXTREMITIES: With trace to 1+ edema. NEUROLOGIC: Intact. Output is greater than intake. LABORATORY DATA: Creatinine is decreased to 1.4. BUN decreased 36 this morning despite the diuresis. Lower extremity ultrasound for DVT was negative bilaterally. Pulmonary has ordered a CT of the chest to look at the abnormalities present on the chest x-ray. IMPRESSION: Congestive heart failure, hypoxia, hemoptysis. PLAN: Ongoing diuresis. Pulmonary and Cardiology help appreciated. We will continue present with additions depending on their findings and recommendations. ABAD DIA MD DR: MARK/vee JOB#: [id number] / [id number]
[2019-02-13 10:44] VITALS: BP 113/49
[2019-02-13] MEDS: cefTRIAXone IV Push 1 GM VIAL. IVP SCH (14:14)
--- NOTE | 2019-02-13 14:20 | NUR ---
CT Chest was ordered. Pt was unable to complete procedure due to back pain. Called Dr Grijalva and received one time order for pain med to give pt prior to procedure. CT was done.
[2019-02-13] MEDS ORDERED: oxyCODONE/APAP 10/325 1 TAB TABLET PO ONE (14:30)
[2019-02-13 14:43] VITALS: BP 110/49
[2019-02-13 19:15] VITALS: BP 114/40
[2019-02-13] MEDS: SIMVASTATIN 20 MG TABLET PO SCH (20:55)
[2019-02-13] MEDS: LACTOBACILLUS RHAMNOSUS GG 1 CAPSULE. PO SCH (20:55)
--- NOTE | 2019-02-13 21:07 | RAD ---
PQRS Compliance Statement: One or more of the following individualized dose reduction techniques were utilized for this examination: 1. Automated exposure control 2. Adjustment of the mA and/or kV according to patient size 3. Use of iterative reconstruction technique CT CHEST WO CONTRAST 02/13/2019 12:00 AM Indication: Abnormal chest x-ray COMPARISON: Chest radiograph 02/11/2019 TECHNIQUE: Multiple axial CT images of the chest were obtained without intravenous contrast. Coronal and sagittal reformats are provided. FINDINGS: Perihilar alveolar airspace disease may represent multifocal pulmonary infiltrates, alveolar edema or alveolar hemorrhage. Small right and trace left pleural effusions adjacent compressive atelectasis versus infiltrates. No pneumothorax. No pathologically enlarged mediastinal or bilateral hilar lymph nodes within the limitations of noncontrast examination. Heart size is enlarged. Ascending thoracic aortic vascular graft is identified. Evaluation is limited by lack of intravenous contrast. Dense coronary artery vascular calcifications are present. Cardiomegaly. No pericardial effusion. Thoracic aorta is otherwise normal in caliber. Thoracic esophagus is normal. Visualized portions of the upper abdomen limited by lack of intravenous contrast. Mild atrophy of the pancreas. Gallbladder is present. No suspicious osseous normality is identified. IMPRESSION: Bilateral perihilar alveolar airspace disease most favors pulmonary edema and/or hemorrhage. Pulmonary infiltrates may have similar appearance. Cardiomegaly with small right and trace left pleural effusion and adjacent compressive atelectasis versus infiltrates. Electronically signed by: Krupa Alfaro MD (02/13/2019 9:04 PM) [facility] [place]
[2019-02-13 23:15] VITALS: BP 113/47
[2019-02-14 03:15] VITALS: BP 106/51
[2019-02-14 07:36] VITALS: BP 108/51
[2019-02-14] MEDS: IPRATRPIUM/ALBUTEROL 0.5/2.5MG 3 ML NEBU. NEB SCH ×4 (07:52→18:55)
[2019-02-14] MEDS: TAMSULOSIN 0.4 MG CAP.ER.24H. PO SCH (08:59)
[2019-02-14] MEDS: LACTOBACILLUS RHAMNOSUS GG 1 CAPSULE. PO SCH ×2 (08:59→21:00)
[2019-02-14] MEDS: MULTIVITAMIN with MINERAL TABLET. PO SCH (08:59)
[2019-02-14] MEDS: ASCORBIC ACID 500 MG TABLET PO SCH (09:00)
[2019-02-14] MEDS: ASPIRIN 325 MG TABLET PO SCH (09:00)
[2019-02-14] MEDS: predniSONE 20 MG TABLET PO SCH (09:00)
[2019-02-14] MEDS: CARVEDILOL 3.125 MG TABLET. PO SCH ×2 (09:01→18:06)
[2019-02-14] MEDS: FUROSEMIDE 40 MG/4 ML VIAL. IVP SCH ×2 (09:01→15:46)
--- NOTE | 2019-02-14 09:20 | PDOC ---
PULMONARY PROGRESS NOTES Subjective NOT MORE SOA Vitals Vital Signs Date Time Temp Pulse Resp B/P (MAP) Pulse Ox O2 Delivery O2 Flow Rate FiO2 02/14/19 09:01 65 108/51 02/14/19 07:59 90 Nasal Cannula 2.0 02/14/19 07:36 97.9 18 97.9 ROS: No Nausea, No Chest Pain, No Abdominal Pain, No Increase Cough General: Alert Lungs: Crackles Cardiovascular: S1, S2 Abdomen: Soft, Non-tender Neuro Exam: Alert Skin: Warm Labs Laboratory Tests Test 02/13/19 04:00 Sodium Level 138 mmol/L (136-145) Potassium Level 5.2 mmol/L (3.5-5.1) Chloride Level 103 mmol/L (98-107) Carbon Dioxide Level 30 mmol/L (21-32) Anion Gap 5 (6-14) Blood Urea Nitrogen 36 mg/dL (8-26) Creatinine 1.4 mg/dL (0.7-1.3) Estimated GFR (Cockcroft-Gault) 48.1 Glucose Level 149 mg/dL (70-99) Calcium Level 9.1 mg/dL (8.5-10.1) Medications Active Scripts Medications Dose Route/Sig Max Daily Dose Days Date Category Multivitamins (Multivitamin) 1 Each Tablet 1 Tab PO DAILY 02/17/17 Reported Tamsulosin Hcl 0.4 Mg Cap.er.24h 0.4 Mg PO DAILY 02/17/17 Reported Simvastatin 20 Mg Tablet 1 Tab PO QHS 02/17/17 Reported Potassium Chloride 20 Meq Tablet.er 20 Meq PO DAILY 02/17/17 Reported Lasix (Furosemide) 20 Mg Tablet 1 Tab PO DAILY 02/17/17 Reported Carvedilol (Carvedilol) 3.125 Mg Tablet 1 Tab PO BID 02/17/17 Reported Aspirin 325 Mg Tablet 1 Tab PO DAILY 02/17/17 Reported Duoneb 0.5-3(2.5) Mg/3 Ml (Albuterol/Ipratropium) 3 Ml Ampul.neb 3 Ml NEB QID 02/17/17 Reported Proair Hfa Inhaler (Albuterol Sulfate) 8.5 Gm Hfa.aer.ad 2 Puff INH PRN Q6HRS PRN 02/17/17 Reported Impression . IMPRESSION: 1. Acute respiratory failure secondary to acute diastolic congestive heart failure and acute exacerbation of chronic obstructive pulmonary disease and acute bronchitis. 2. Abnormal chest x-ray. 3. Acute diastolic congestive heart failure. 4. Acute exacerbation of chronic obstructive pulmonary disease. 5. Acute bronchitis. 6. Acute kidney injury. 7. Hyperkalemia. 8. Pulmonary hypertension, secondary, due to chronic obstructive pulmonary disease, congestive heart failure, moderate mitral regurgitation. CT IMPRESSION: Bilateral perihilar alveolar airspace disease most favors pulmonary edema and/or hemorrhage. Pulmonary infiltrates may have similar appearance. Cardiomegaly with small right and trace left pleural effusion and adjacent compressive atelectasis versus infiltrates. Plan . 02 BD LASIX I THNK THIS IS MOSTLY ACUTE CHF PRED FOR NOW WILL D/W DR DIA ON D/C PLANNING JEN LAU MD Feb 14, 2019 09:19
[2019-02-14] MEDS: cefTRIAXone IV Push 1 GM VIAL. IVP SCH (10:38)
[2019-02-14 11:36] VITALS: BP 108/64
--- NOTE | 2019-02-14 13:53 | PN ---
DATE: 02/14/2019 DAILY PROGRESS NOTE SUBJECTIVE: The patient is awake, alert, sitting in bed, still feels like he has ongoing shortness of breath. He is not happy with this. No further hemoptysis. OBJECTIVE: VITAL SIGNS: Stable. He is afebrile. GENERAL: Again, awake and alert. CHEST: Reveals occasional crackle. HEART: Regular. ABDOMEN: Benign. LABORATORY DATA: CT imaging done yesterday show evidence consistent with congestive heart failure. Intake is reported as greater than output in the last 24 hours. IMPRESSION: Acute diastolic congestive heart failure, clinically there is ____ improvement from admission. PLAN: Continue diuresis. I will ask further thoughts from Pulmonary and Cardiology, would expect ____. ABAD DIA MD DR: MARK/vee JOB#: [id number] / [id number]
[2019-02-14 14:43] VITALS: BP 113/43
[2019-02-14 19:52] VITALS: BP 102/46
[2019-02-14] MEDS: SIMVASTATIN 20 MG TABLET PO SCH (21:00)
--- NOTE | 2019-02-14 22:04 | PDOC ---
Provider Note Provider Note Pt. seen and examined. He is still volume overloaded significantly Will more aggressively diurese Supportive care. Thanks SARAH HUBBARD MD Feb 14, 2019 22:04
[2019-02-14 23:56] VITALS: BP 106/53
[2019-02-15 03:30] VITALS: BP 101/49
[2019-02-15 07:30] VITALS: BP 99/44
[2019-02-15] MEDS: IPRATRPIUM/ALBUTEROL 0.5/2.5MG 3 ML NEBU. NEB SCH ×4 (07:43→20:07)
--- NOTE | 2019-02-15 07:52 | PDOC ---
GENERAL General: vss and afebrile. awake and alert. still sob and worse trying to lean back in c hair. still not great urine output yesterday with bid iv lasix and will add dose of zaroxylyn po this am. exam stable possible to snu later today depending on cardiology opinion this am. VITAL SIGNS/I&O Vital Signs/I&O: Vital Signs Date Time Temp Pulse Resp B/P (MAP) Pulse Ox O2 Delivery O2 Flow Rate FiO2 02/15/19 07:43 99 Nasal Cannula 3.0 02/15/19 03:30 98.8 72 20 101/49 (66) 98.8 I & O 02/14/19 02/14/19 02/15/19 15:00 23:00 07:00 Intake Total 100 ml 400 ml Output Total 300 ml 450 ml Balance 100 ml 100 ml -450 ml ALLERGIES Allergies: Allergies Coded Allergies Type Severity Reaction Last Updated Verified No Known Drug Allergies 02/17/17 No MEDS Medications: Current Medications Medications (Trade) Dose Ordered Sig/Jax Route PRN Reason Start Time Stop Time Status Last Admin Dose Admin Furosemide (Lasix) 40 mg [id number] IVP 02/14/19 15:00 02/14/19 15:46 ABAD DIA MD Feb 15, 2019 07:51
[2019-02-15] MEDS: CARVEDILOL 3.125 MG TABLET. PO SCH ×2 (08:00→17:00)
[2019-02-15] MEDS: FUROSEMIDE 40 MG/4 ML VIAL. IVP SCH ×2 (08:18→13:52)
[2019-02-15] MEDS: predniSONE 20 MG TABLET PO SCH (08:18)
[2019-02-15] MEDS: metOLazone 2.5 MG TABLET PO SCH (08:21)
[2019-02-15] MEDS: ASPIRIN 325 MG TABLET PO SCH (08:22)
[2019-02-15] MEDS: ASCORBIC ACID 500 MG TABLET PO SCH (08:22)
[2019-02-15] MEDS: MULTIVITAMIN with MINERAL TABLET. PO SCH (08:22)
[2019-02-15] MEDS: TAMSULOSIN 0.4 MG CAP.ER.24H. PO SCH (08:22)
[2019-02-15] MEDS: LACTOBACILLUS RHAMNOSUS GG 1 CAPSULE. PO SCH ×2 (08:23→21:10)
[2019-02-15] MEDS: POLYETHYLENE GLYCOL 3350 17 GM PACKET. PO PRN (08:24)
--- NOTE | 2019-02-15 09:37 | PDOC ---
PULMONARY PROGRESS NOTES Subjective NOT MORE SOA Vitals Vital Signs Date Time Temp Pulse Resp B/P (MAP) Pulse Ox O2 Delivery O2 Flow Rate FiO2 02/15/19 08:00 Nasal Cannula 3.0 02/15/19 08:00 67 99/44 02/15/19 07:43 99 02/15/19 07:30 97.9 19 97.9 ROS: No Nausea, No Chest Pain, No Abdominal Pain, No Increase Cough General: Alert Lungs: Crackles Cardiovascular: S1, S2 Abdomen: Soft, Non-tender Neuro Exam: Alert Skin: Warm Medications Active Scripts Medications Dose Route/Sig Max Daily Dose Days Date Category Multivitamins (Multivitamin) 1 Each Tablet 1 Tab PO DAILY 02/17/17 Reported Tamsulosin Hcl 0.4 Mg Cap.er.24h 0.4 Mg PO DAILY 02/17/17 Reported Simvastatin 20 Mg Tablet 1 Tab PO QHS 02/17/17 Reported Potassium Chloride 20 Meq Tablet.er 20 Meq PO DAILY 02/17/17 Reported Lasix (Furosemide) 20 Mg Tablet 1 Tab PO DAILY 02/17/17 Reported Carvedilol (Carvedilol) 3.125 Mg Tablet 1 Tab PO BID 02/17/17 Reported Aspirin 325 Mg Tablet 1 Tab PO DAILY 02/17/17 Reported Duoneb 0.5-3(2.5) Mg/3 Ml (Albuterol/Ipratropium) 3 Ml Ampul.neb 3 Ml NEB QID 02/17/17 Reported Proair Hfa Inhaler (Albuterol Sulfate) 8.5 Gm Hfa.aer.ad 2 Puff INH PRN Q6HRS PRN 02/17/17 Reported Impression . IMPRESSION: 1. Acute respiratory failure secondary to acute diastolic congestive heart failure and acute exacerbation of chronic obstructive pulmonary disease and acute bronchitis. 2. Abnormal chest x-ray. 3. Acute diastolic congestive heart failure. 4. Acute exacerbation of chronic obstructive pulmonary disease. 5. Acute bronchitis. 6. Acute kidney injury. 7. Hyperkalemia. 8. Pulmonary hypertension, secondary, due to chronic obstructive pulmonary disease, congestive heart failure, moderate mitral regurgitation. CT IMPRESSION: Bilateral perihilar alveolar airspace disease most favors pulmonary edema and/or hemorrhage. Pulmonary infiltrates may have similar appearance. Cardiomegaly with small right and trace left pleural effusion and adjacent compressive atelectasis versus infiltrates. Plan . D/W DR DIA AND RAJ OK TO TRANSFER IF OK WITH CARD WILL NEED REHAB AT [facility] BD JARRED CARR THIS IS MOSTLY ACUTE CHF PRED FOR NOW JEN LAU MD Feb 15, 2019 09:37
[2019-02-15 11:22] VITALS: BP 102/49
--- NOTE | 2019-02-15 12:12 | NUR ---
SW following pt. Cardiology is okay with pt going to SNU. Physician notified. SW will await for dc order and proceed accordingly. Discussed with RN and Shantal at [facility].
--- NOTE | 2019-02-15 12:19 | PDOC ---
CRISTIAN MOJICA EARLY CHILDHOOD EDUCATION COORDINATOR 02/15/19 1219: CARDIO Progress Notes Date and Time Date of Service 02/15/2019 Time of Evaluation 1030 Subjective Subjective: No Chest Pain, No shortness of breath, No Palpitations Vitals Vitals Vital Signs Date Time Temp Pulse Resp B/P (MAP) Pulse Ox O2 Delivery O2 Flow Rate FiO2 02/15/19 11:22 97.6 80 19 102/49 (66) 97 Nasal Cannula 2.0 97.6 Weight Weight [ ] Input and Output Intake and Output Intake and Output 02/15/19 07:00 Intake Total 500 ml Output Total 750 ml Balance -250 ml Intake Oral 500 ml Output Urine Total 750 ml # Voids 2 Physical Exam HEENT: Neck Supple W Full Motion Chest: Symmetric LUNGS: Other (basilar crackles) Heart: S1S2, RRR (SR with brief episodes of PSVTs. ) Abdomen: Soft N/T Extremities: No Calf Tenderness, Other (2+ bilateral LE pitting edema) Neurology: alert, follow commands Assessment Assessment 1. Acute on chronic diastolic CHF: appears compensated 2. Hx of severe with past TAVR:stable 3. CAD clinically stable. 4. Moderate to severe pulmonary HTN: pulmonary following 5. 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 Possible dementia 7. 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 Continue lasix therapy 2. Continue secondary prevention 3. Follow up with outpt airborne electronics analyst. 4. Consider palliative consult to address goals of care. Maintain conservative measures given his age and dementia. BMP.Mg today. possible SNU SARAH HUBBARD MD 02/15/19 1648: CARDIO Progress Notes Plan Plan Patient seen and examined. Agree with above nurse practitioner note. Continues to have severe 2+ lower extreme edema although clinically he does not look significantly volume overloaded. This may partially be related to venous insufficiency and venous stasis. Continue diuretics as tolerated Consider palliative care discussion. CRISTIAN MOJICA APRN Feb 15, 2019 12:19 SARAH HUBBARD MD Feb 15, 2019 16:48
[2019-02-15] MEDS: cefTRIAXone IV Push 1 GM VIAL. IVP SCH (12:43)
[2019-02-15 15:00] VITALS: BP 108/49
[2019-02-15 15:03] LABS: CALCIUM 8.6 mg/dL (8.5-10.1); CREATININE 1.9 mg/dL (0.7-1.3); GFR 33.8; MAGNESIUM 2.1 mg/dL (1.8-2.4); POTASSIUM 4.3 mmol/L (3.5-5.1)
--- NOTE | 2019-02-15 15:22 | NUR ---
wound care patient seen for a f/u of wound care consult. see wound assessment. patient has a lesion on the left forehead the area was cleaned and redressed with recommendations of Xeroform gauze with a Telfa dressing change every other day, patient also has a wound on the scalp the area was cleaned and redressed with recommendations of Xeroform gauze with a Telfa, change every other day. patient has a stage 2 pressure ulcer on the buttock/ coccyx area, recommendations of continuing with Calazime cream, prn. patient currently has a P500 bed. patient sitting in the chair at this time with a chair cushion at this time. wound care will continue to f/u for changes.
[2019-02-15 19:45] VITALS: BP 105/34
[2019-02-15] MEDS: SIMVASTATIN 20 MG TABLET PO SCH (21:10)
[2019-02-16 03:20] VITALS: BP 106/37
[2019-02-16 07:00] VITALS: BP 112/48
[2019-02-16] MEDS: IPRATRPIUM/ALBUTEROL 0.5/2.5MG 3 ML NEBU. NEB SCH ×2 (07:06→10:42)
--- NOTE | 2019-02-16 07:51 | SNU/HH DC ---
DISCHARGE ORDERS DISCHARGE INFORMATION: DISCHARGE DATE: Feb 16, 2019 FINAL DIAGNOSIS Problems Medical Problems: (1) CHF exacerbation Status: Acute (2) Dyspnea Status: Acute (3) Elevated bilirubin Status: Acute (4) Hypoxia Status: Acute (5) Renal insufficiency Status: Acute CONDITION ON DISCHARGE: Stable CODE STATUS: Code Status: Full SHELTER: SNF STAY <30 DAYS: Yes HOSPICE: HOSPICE: No HOSPICE EVAL & TREAT: No LTAC: ADMIT TO LTAC: No POST DISCHARGE ORDERS: ACTIVITY ORDERS: Activity as tolerated, Progressive ambulation WEIGHT BEARING STATUS: As tolerated DIET AFTER DISCHARGE: Cardiac CHECKS AFTER DISCHARGE: CHECKS AFTER DISCHARGE: Check blood press - daily TREATMENT/EQUIPMENT ORDERS: Physical Therapy For: Evalulation/Treatment Occupational Therapy For: Evaluation/Treatment DISCHARGE MEDICATIONS: Home Meds Reported Medications Multivitamin (MULTIVITAMINS) 1 Each Tablet, 1 TAB PO DAILY, #90 TAB 3 Refills 02/17/17 Tamsulosin Hcl (TAMSULOSIN HCL) 0.4 Mg Cap.er.24h, 0.4 MG PO DAILY, TAB 02/17/17 Simvastatin (SIMVASTATIN) 20 Mg Tablet, 1 TAB PO QHS, #30 TAB 5 Refills 02/17/17 Potassium Chloride (POTASSIUM CHLORIDE) 20 Meq Tablet.er, 20 MEQ PO DAILY, TAB.SR 02/17/17 Furosemide (LASIX) 20 Mg Tablet, 1 TAB PO DAILY, #90 TAB 1 Refill 02/17/17 Carvedilol (CARVEDILOL ) 3.125 Mg Tablet, 1 TAB PO BID, #60 TAB 3 Refills 02/17/17 Aspirin (ASPIRIN) 325 Mg Tablet, 1 TAB PO DAILY, #30 TAB 5 Refills 02/17/17 Ipratropium/Albuterol Sulfate (DUONEB 0.5-3(2.5) MG/3 ML) 3 Ml Ampul.neb, 3 ML NEB QID, EACH 02/17/17 Albuterol Sulfate (PROAIR HFA INHALER) 8.5 Gm Hfa.aer.ad, 2 PUFF INH PRN Q6HRS PRN for SHORTNESS OF BREATH, INHALER 0 Refills 02/17/17 ABAD DIA MD Feb 16, 2019 07:51
[2019-02-16] MEDS ORDERED: PRED20TA PO (07:54)
[2019-02-16] MEDS ORDERED: POLY17PO28 PO (07:54)
[2019-02-16] MEDS ORDERED: FURO-68 PO (07:54)
--- NOTE | 2019-02-16 08:09 | DS ---
DATE OF DISCHARGE: 02/16/2019 PRIMARY DIAGNOSES: Exacerbation of congestive heart failure with acute diastolic heart failure with shortness of breath. ADDITIONAL DIAGNOSES: Chronic kidney disease, history of cerebrovascular accident, hypertension, and hemoptysis. CHIEF COMPLAINT AND HISTORY OF PRESENT ILLNESS: This 88-year-old white male admitted with 10 days or so of increasing shortness of breath through the Emergency Room with findings consistent with bilateral perihilar infiltrates consistent with heart failure and elevated BNP and a creatinine of 1.7. SUMMARY OF STAY: The patient was admitted. Pulmonary and Cardiology saw throughout the stay, was treated with antibiotics for an exacerbation of COPD as well as steroids along with diuresis. He did improve somewhat, but still was far from not short of breath and very weak, felt he needed to go to intermediate for a while and this was accomplished on the day of dismissal. DISPOSITION: The patient is discharged to intermediate. Please see orders regarding diet, medication, activity, etc. We will continue to follow him there. ABAD DIA MD DR: MARK/vee JOB#: [id number] / [id number]
[2019-02-16] MEDS: metOLazone 2.5 MG TABLET PO SCH (09:09)
[2019-02-16] MEDS: FUROSEMIDE 40 MG/4 ML VIAL. IVP SCH (09:09)
[2019-02-16] MEDS: LACTOBACILLUS RHAMNOSUS GG 1 CAPSULE. PO SCH (09:10)
[2019-02-16] MEDS: ASCORBIC ACID 500 MG TABLET PO SCH (09:10)
[2019-02-16] MEDS: CARVEDILOL 3.125 MG TABLET. PO SCH (09:11)
[2019-02-16] MEDS: MULTIVITAMIN with MINERAL TABLET. PO SCH (09:11)
[2019-02-16] MEDS: ASPIRIN 325 MG TABLET PO SCH (09:11)
[2019-02-16] MEDS: POLYETHYLENE GLYCOL 3350 17 GM PACKET. PO PRN (09:14)
[2019-02-16] MEDS: TAMSULOSIN 0.4 MG CAP.ER.24H. PO SCH (09:14)
[2019-02-16] MEDS: predniSONE 20 MG TABLET PO SCH (09:14)
--- NOTE | 2019-02-16 09:41 | NUR ---
KALEB following pt. Pt has discharged orders to go SNF but med rec does not match with dc instruction. Physician is notified about this. Pt is not able to discharge until med rec is reconciled accurately. Discussed with RN and Shantal painter PP.
[2019-02-16 10:53] VITALS: BP 108/44
--- NOTE | 2019-02-16 10:58 | PDOC ---
PULMONARY PROGRESS NOTES Subjective NOT MORE SOA Vitals Vital Signs Date Time Temp Pulse Resp B/P (MAP) Pulse Ox O2 Delivery O2 Flow Rate FiO2 02/16/19 10:53 97.7 75 16 108/44 (65) 98 Nasal Cannula 2.0 97.7 ROS: No Nausea, No Chest Pain, No Abdominal Pain, No Increase Cough General: Alert Lungs: Crackles Cardiovascular: S1, S2 Abdomen: Soft, Non-tender Neuro Exam: Alert Skin: Warm Labs Laboratory Tests Test 02/15/19 14:35 Sodium Level 141 mmol/L (136-145) Potassium Level 4.3 mmol/L (3.5-5.1) Chloride Level 100 mmol/L (98-107) Carbon Dioxide Level 30 mmol/L (21-32) Anion Gap 11 (6-14) Blood Urea Nitrogen 51 mg/dL (8-26) Creatinine 1.9 mg/dL (0.7-1.3) Estimated GFR (Cockcroft-Gault) 33.8 Glucose Level 148 mg/dL (70-99) Calcium Level 8.6 mg/dL (8.5-10.1) Magnesium Level 2.1 mg/dL (1.8-2.4) Laboratory Tests Test 02/15/19 14:35 Sodium Level 141 mmol/L (136-145) Potassium Level 4.3 mmol/L (3.5-5.1) Chloride Level 100 mmol/L (98-107) Carbon Dioxide Level 30 mmol/L (21-32) Anion Gap 11 (6-14) Blood Urea Nitrogen 51 mg/dL (8-26) Creatinine 1.9 mg/dL (0.7-1.3) Estimated GFR (Cockcroft-Gault) 33.8 Glucose Level 148 mg/dL (70-99) Calcium Level 8.6 mg/dL (8.5-10.1) Magnesium Level 2.1 mg/dL (1.8-2.4) Medications Active Scripts Medications Dose Route/Sig Max Daily Dose Days Date Category Multivitamins (Multivitamin) 1 Each Tablet 1 Tab PO DAILY 02/17/17 Reported Tamsulosin Hcl 0.4 Mg Cap.er.24h 0.4 Mg PO DAILY 02/17/17 Reported Simvastatin 20 Mg Tablet 1 Tab PO QHS 02/17/17 Reported Potassium Chloride 20 Meq Tablet.er 20 Meq PO DAILY 02/17/17 Reported Lasix (Furosemide) 20 Mg Tablet 1 Tab PO DAILY 02/17/17 Reported Carvedilol (Carvedilol) 3.125 Mg Tablet 1 Tab PO BID 02/17/17 Reported Aspirin 325 Mg Tablet 1 Tab PO DAILY 02/17/17 Reported Duoneb 0.5-3(2.5) Mg/3 Ml (Albuterol/Ipratropium) 3 Ml Ampul.neb 3 Ml NEB QID 02/17/17 Reported Proair Hfa Inhaler (Albuterol Sulfate) 8.5 Gm Hfa.aer.ad 2 Puff INH PRN Q6HRS PRN 02/17/17 Reported Impression . IMPRESSION: 1. Acute respiratory failure secondary to acute diastolic congestive heart failure and acute exacerbation of chronic obstructive pulmonary disease and acute bronchitis. 2. Abnormal chest x-ray. 3. Acute diastolic congestive heart failure. 4. Acute exacerbation of chronic obstructive pulmonary disease. 5. Acute bronchitis. 6. Acute kidney injury. 7. Hyperkalemia. 8. Pulmonary hypertension, secondary, due to chronic obstructive pulmonary disease, congestive heart failure, moderate mitral regurgitation. CT IMPRESSION: Bilateral perihilar alveolar airspace disease most favors pulmonary edema and/or hemorrhage. Pulmonary infiltrates may have similar appearance. Cardiomegaly with small right and trace left pleural effusion and adjacent compressive atelectasis versus infiltrates. Plan . D/W JEN ARANA MD Feb 16, 2019 10:58
[2019-02-16] MEDS: cefTRIAXone IV Push 1 GM VIAL. IVP SCH (11:11)
--- NOTE | 2019-02-16 13:52 | PDOC ---
CARDIO Progress Notes Date and Time Date of Service 02/16/19 Time of Evaluation 1315 Subjective Subjective: No Chest Pain, No shortness of breath, No Palpitations, Other (no specific complaints ) Vitals Vitals Vital Signs Date Time Temp Pulse Resp B/P (MAP) Pulse Ox O2 Delivery O2 Flow Rate FiO2 02/16/19 10:53 97.7 75 16 108/44 (65) 98 Nasal Cannula 2.0 97.7 Weight Weight [ ] Input and Output Intake and Output Intake and Output 02/16/19 07:00 Intake Total 230 ml Output Total 600 ml Balance -370 ml Intake Oral 230 ml Output Urine Total 600 ml # Voids 11 Laboratory Labs Laboratory Tests Test 02/15/19 14:35 Sodium Level 141 mmol/L (136-145) Potassium Level 4.3 mmol/L (3.5-5.1) Chloride Level 100 mmol/L (98-107) Carbon Dioxide Level 30 mmol/L (21-32) Anion Gap 11 (6-14) Blood Urea Nitrogen 51 mg/dL (8-26) Creatinine 1.9 mg/dL (0.7-1.3) Estimated GFR (Cockcroft-Gault) 33.8 Glucose Level 148 mg/dL (70-99) Calcium Level 8.6 mg/dL (8.5-10.1) Magnesium Level 2.1 mg/dL (1.8-2.4) Physical Exam HEENT: Neck Supple W Full Motion Chest: Symmetric LUNGS: Other (fine bibasilar crackles, diminished ) Heart: S1S2, RRR (SR with brief episodes of PSVTs. ) Abdomen: Soft N/T Extremities: No Calf Tenderness, Other (1-2+ bilateral LE pitting edema, erythma ) Neurology: alert, follow commands, other ([place]) Assessment Assessment 1. Acute on chronic diastolic CHF: appears compensated 2. 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 LE edema; probable venous stasis component 3. CAD; clinically stable. 4. Hx of severe with past TAVR 5. 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 Moderate to severe pulmonary HTN 7. Possible dementia Recommendations Convert lasix to oral Continue metolazone LE elevation Secondary prevention measures May discharge to SNU today F/u with primary sanitary inspector at [facility] APRN Feb 16, 2019 13:52
[2019-02-16] MEDS ORDERED: FUROSEMIDE 40 MG TABLET. PO SCH (14:00)
[2019-02-16 14:47] VITALS: BP 100/35
--- NOTE | 2019-02-16 15:00 | SNU/HH DC ---
DISCHARGE ORDERS DISCHARGE INFORMATION: DISCHARGE DATE: Feb 16, 2019 FINAL DIAGNOSIS Problems Medical Problems: (1) CHF exacerbation Status: Acute (2) Dyspnea Status: Acute (3) Elevated bilirubin Status: Acute (4) Hypoxia Status: Acute (5) Renal insufficiency Status: Acute CONDITION ON DISCHARGE: Stable CODE STATUS: Code Status: Full SENIOR LIVING: SNF STAY <30 DAYS: Yes HOSPICE: HOSPICE: No HOSPICE EVAL & TREAT: No LTAC: ADMIT TO LTAC: No POST DISCHARGE ORDERS: ACTIVITY ORDERS: Activity as tolerated, Avoid high altitudes, Progressive ambulation WEIGHT BEARING STATUS: As tolerated DIET AFTER DISCHARGE: Cardiac CHECKS AFTER DISCHARGE: CHECKS AFTER DISCHARGE: Check blood press - daily TREATMENT/EQUIPMENT ORDERS: RESPIRATORY EQUIPMENT NEEDED: Oxygen Physical Therapy For: Evalulation/Treatment Occupational Therapy For: Evaluation/Treatment DISCHARGE MEDICATIONS: Home Meds Active Scripts Furosemide (LASIX) 40 Mg Tablet, 40 MG PO BID for chf for 30 Days, #60 TAB Prov:ABAD DIA MD 02/16/19 Prednisone (PREDNISONE) 20 Mg Tablet, 40 MG PO DAILY for sob for 30 Days, #60 TAB Prov:ABAD DIA MD 02/16/19 Polyethylene Glycol 3350 (POLYETHYLENE GLYCOL 3350) 17 Gm Powd.pack, 17 GM PO PRN BID PRN for CONSTIPATION for 30 Days, #30 PKT Prov:ABAD DIA MD 02/16/19 Reported Medications Multivitamin (MULTIVITAMINS) 1 Each Tablet, 1 TAB PO DAILY, #90 TAB 3 Refills 02/17/17 Tamsulosin Hcl (TAMSULOSIN HCL) 0.4 Mg Cap.er.24h, 0.4 MG PO DAILY, TAB 02/17/17 Simvastatin (SIMVASTATIN) 20 Mg Tablet, 1 TAB PO QHS, #30 TAB 5 Refills 02/17/17 Potassium Chloride (POTASSIUM CHLORIDE) 20 Meq Tablet.er, 20 MEQ PO DAILY, TAB.SR 02/17/17 Carvedilol (CARVEDILOL ) 3.125 Mg Tablet, 1 TAB PO BID, #60 TAB 3 Refills 02/17/17 Aspirin (ASPIRIN) 325 Mg Tablet, 1 TAB PO DAILY, #30 TAB 5 Refills 02/17/17 Ipratropium/Albuterol Sulfate (DUONEB 0.5-3(2.5) MG/3 ML) 3 Ml Ampul.neb, 3 ML NEB QID, EACH 02/17/17 Albuterol Sulfate (PROAIR HFA INHALER) 8.5 Gm Hfa.aer.ad, 2 PUFF INH PRN Q6HRS PRN for SHORTNESS OF BREATH, INHALER 0 Refills 02/17/17 Discontinued Reported Medications Furosemide (LASIX) 20 Mg Tablet, 1 TAB PO DAILY, #90 TAB 1 Refill 02/17/17 ABAD DIA MD Feb 16, 2019 15:00
--- NOTE | 2019-02-16 15:00 | NUR ---
Patient discharged to halfway facility. Report called to Shilpa at [facility]. Discharge papers given to director of transportation. All belongings with patient. Security drove patients personal belongings (credit cards and tompkins) to [facility] and given to nurse. Patient assisted out in wheelchair with transportation at this time
--- NOTE | 2019-02-16 16:01 | NUR ---
Late note: SW arranged transport via central transport at 1500. Pt's son Franklyn notified and agreeable to bring inhaler to [facility]. Pt aware and agreeable with plans. Discussed with RN.
== END 2019-02-16 15:00 | DRG 291 ==
LOC: ER 06:43 → 6 SOUTH 09:01
PROVIDERS: ADMIT Family Medicine; ATTEND Family Medicine
DX: I13.0 Hypertensive heart and chronic kidney disease with heart failure and stage 1 through stage 4 chronic kidney disease, or unspecified chronic kidney disease (principal); N17.0 Acute kidney failure with tubular necrosis; I50.33 Acute on chronic diastolic (congestive) heart failure; J96.01 Acute respiratory failure with hypoxia; J44.0 Chronic obstructive pulmonary disease with (acute) lower respiratory infection; J44.1 Chronic obstructive pulmonary disease with (acute) exacerbation; R04.2 Hemoptysis; E78.5 Hyperlipidemia, unspecified; E87.5 Hyperkalemia; F03.90 Unspecified dementia, unspecified severity, without behavioral disturbance, psychotic disturbance, mood disturbance, and anxiety; H91.90 Unspecified hearing loss, unspecified ear; I08.0 Rheumatic disorders of both mitral and aortic valves; I25.10 Atherosclerotic heart disease of native coronary artery without angina pectoris; I27.20 Pulmonary hypertension, unspecified; I73.9 Peripheral vascular disease, unspecified; M19.90 Unspecified osteoarthritis, unspecified site; I87.8 Other specified disorders of veins; J20.9 Acute bronchitis, unspecified; N18.3 Chronic kidney disease, stage 3 (moderate); Z79.82 Long term (current) use of aspirin; Z85.828 Personal history of other malignant neoplasm of skin; Z86.73 Personal history of transient ischemic attack (TIA), and cerebral infarction without residual deficits; Z95.2 Presence of prosthetic heart valve; Z79.899 Other long term (current) drug therapy
CPT/HCPCS: 36415; 36600; 71045; 71046; 71250; 80048; 80053; 81001; 82550; 82805; 83605; 83735; 83880; 84484; 85025; 90471; 90686; 93005; 93306; 93970; 94640; 94760; 96374; J0696; J1940; J2920; J2930; J7512; J7620; 97110; 97116; 97530; 97535; 99285-25; G0378